=== PATIENT | male | born 1990 | race African-American/Black ===

== ENCOUNTER 2019-11-09 19:29 | Emergency (ER) | payer SELFPAY ==
[~2019-11-09] VITALS: Ht 188 cm; Wt 86.4 kg
--- NOTE | 2019-11-09 19:52 | PHYS DOC ---
General Adult EDM: Chief Complaint: LOWER EXTREMITY SWELLING HPI: HPI: The history was obtained from the patient. Patient is a 29-year-old male with no reported PMH who presents with a chief complaint of leg swelling. Patient states he has had bilateral lower extremity swelling that began this morning. He states yesterday his legs are normal in size. Recent travel or strenuous activity. Denies any history of blood clot. Denies any history of heart failure. States he has no chest pain or shortness of breath. Denies bendopnea or orthopnea. He denies any cough or fever. Denies any history of liver or kidney issues. Denies history of drug use. States he was recently incarcerated and has not had health care for quite a while. Does not take medication daily. Denies history of blood clot in legs or lungs. States it is somewhat painful to stand or ambulate. Has not tried medicine to help. No other complaints. Review of Systems: Review of Systems: Constitutional: Denies fever or chills. [] Eyes: Denies change in visual acuity. [] HENT: Denies nasal congestion or sore throat. [] Respiratory: Denies cough or shortness of breath. [] Cardiovascular: Positive for edema GI: Denies abdominal pain, nausea, vomiting, bloody stools or diarrhea. [] : Denies dysuria. [] Musculoskeletal: Denies back pain or joint pain. [] Integument: Denies rash. [] Neurologic: Denies headache, focal weakness or sensory changes. [] Endocrine: Denies polyuria or polydipsia. [] Lymphatic: Denies swollen glands. [] Psychiatric: Denies depression or anxiety. [] Heart Score: Risk Factors: Risk Factors: DM, Current or recent (<one month) smoker, HTN, HLP, family history of CAD, obesity. Risk Scores: Score 0 - 3: 2.5% MACE over next 6 weeks - Discharge Home Score 4 - 6: 20.3% MACE over next 6 weeks - Admit for Clinical Observation Score 7 - 10: 72.7% MACE over next 6 weeks - Early Invasive Strategies Physical Exam: PE: Constitutional: Well developed, well nourished, no acute distress, non-toxic appearance. [] HENT: Normocephalic, atraumatic, bilateral external ears normal, oropharynx moist, no oral exudates, nose normal. [] Eyes: PERRLA, EOMI, conjunctiva normal, no discharge. [] Neck: Normal range of motion, no tenderness, supple, no stridor. [] Cardiovascular:Heart rate regular rhythm, no murmur. +2-4 DP pulses bilat erally. Lungs & Thorax: Bilateral breath sounds clear to auscultation [] Abdomen: Bowel sounds normal, soft, no tenderness, no masses, no pulsatile masses. [] Skin: Slight increase in warmth to the feet bilaterally. No anthony erythema or induration noted. No crepitus palpated. Back: No tenderness, no CVA tenderness. [] Extremities: No tenderness, no cyanosis, no clubbing, ROM intact, no edema. [] Neurologic: Alert and oriented X 3, normal motor function, normal sensory function, no focal deficits noted. [] Psychologic: Affect normal, judgement normal, mood normal. [] Current Patient Data: Labs: Laboratory Tests Test 11/09/19 20:06 11/09/19 21:34 White Blood Count 5.6 x10^3/uL Red Blood Count 4.77 x10^6/uL Hemoglobin 11.9 g/dL Hematocrit 37.0 % Mean Corpuscular Volume 77 fL Mean Corpuscular Hemoglobin 25 pg Mean Corpuscular Hemoglobin Concent 32 g/dL Red Cell Distribution Width 16.9 % Platelet Count 147 x10^3/uL Neutrophils (%) (Auto) 47 % Lymphocytes (%) (Auto) 41 % Monocytes (%) (Auto) 9 % Eosinophils (%) (Auto) 1 % Basophils (%) (Auto) 2 % Neutrophils # (Auto) 2.6 x10^3/uL Lymphocytes # (Auto) 2.3 x10^3/uL Monocytes # (Auto) 0.5 x10^3/uL Eosinophils # (Auto) 0.1 x10^3/uL Basophils # (Auto) 0.1 x10^3/uL Sodium Level 145 mmol/L Potassium Level 4.3 mmol/L Chloride Level 109 mmol/L Carbon Dioxide Level 32 mmol/L Anion Gap 4 Blood Urea Nitrogen 15 mg/dL Creatinine 1.0 mg/dL Estimated GFR (Cockcroft-Gault) 87.2 BUN/Creatinine Ratio 15 Glucose Level 121 mg/dL Calcium Level 8.8 mg/dL Total Bilirubin 0.2 mg/dL Aspartate Amino Transf (AST/SGOT) 17 U/L Alanine Aminotransferase (ALT/SGPT) 28 U/L Alkaline Phosphatase 71 U/L TZ-Cyc-B-Type Natriuretic Peptide 90 pg/mL Total Protein 6.1 g/dL Albumin 3.4 g/dL Albumin/Globulin Ratio 1.3 Urine Collection Type Unknown Urine Color Yellow Urine Clarity Clear Urine pH 7.0 Urine Specific [place] >=1.030 Urine Protein Negative mg/dL Urine Glucose (UA) Negative mg/dL Urine Ketones (Stick) Trace mg/dL Urine Blood Negative Urine Nitrite Negative Urine Bilirubin Small Urine Urobilinogen Dipstick 1.0 mg/dL Urine Leukocyte Esterase Negative Urine RBC 0 /HPF Urine WBC 1-4 /HPF Urine Squamous Epithelial Cells Few /LPF Urine Bacteria 0 /HPF Urine Mucus Mod /LPF EKG: EKG: EKG consistent with normal sinus rhythm. Ventricular rate of 81 bpm. [place] normal. Intervals normal. Low limb voltage appreciated. No acute ischemic changes noted. No previous for comparison. [] Radiology/Procedures: Radiology/Procedures: [][address] [address] IMAGING REPORT Signed PATIENT: SHERLYN MASTERSON ACCOUNT: [id number] : 1990 LOCATION: ER AGE: 29 SEX: M EXAM STATUS: PRE ER ORD. PHYSICIAN: SHARDA LOVING DO REASON: b/l LE swelling PROCEDURE: VENOUS LOWER EXT BILATERAL Exam: Bilateral lower extremity venous duplex study INDICATION: Leg swelling TECHNIQUE: Using a combination of real-time ultrasound imaging and color-flow and pulse Doppler imaging techniques along with graded compression and augmentation, duplex evaluation of the deep venous systems of bilateral lower extremity was performed. Multiple images were obtained. Findings: There is no sonographic evidence for deep venous thrombosis involving the visualized deep venous structures of the bilateral lower extremity. IMPRESSION: No acute DVT in the bilateral lower extremities. Electronically signed by: Jocelyn Mensah MD (11/09/2019 9:17 PM) [id number] DICTATED and SIGNED BY: JOCELYN MENSAH MD DATE: 11/09/192116 [address] [place] [address] IMAGING REPORT Signed PATIENT: SHERLYN RIOSACCOUNT: [id number] : 1990 LOCATION: ER AGE: 29 SEX: M EXAM STATUS: REG ER ORD. PHYSICIAN: SHARDA LOVING DO REASON: leg swelling PROCEDURE: CHEST AP ONLY Exam: Chest one view INDICATION: Leg swelling TECHNIQUE: Frontal view of the chest Comparisons: None FINDINGS: The cardiomediastinal silhouette and pulmonary vessels are within normal limits. The lung and pleural spaces are clear. IMPRESSION: No acute cardiopulmonary process. Electronically signed by: Jocelyn Mensah MD (11/09/2019 9:34 PM) [id number] DICTATED and SIGNED BY: JOCELYN MENSAH MD DATE: 11/09/192133 Course & Med Decision Making: Course & Med Decision Making Pertinent Labs and Imaging studies reviewed. (See chart for details) Patient is a very pleasant 29-year-old male who presents with chief complaint of bilateral lower extremity swelling over the past 12 hours. Initial vital signs unremarkable. Exam noted above. Lower extremity DVT study was negative for DVTs bilaterally. Chest x-ray nonacute. Labs been grossly unremarkable. Normal kidney function. Liver enzymes within normal limits. BNP normal. Bedside echo performed by myself does show potential trace pericardial effusion. Urinalysis showed no signs of proteinuria. At this time the exact cause of his lower extremity swelling is unclear. He continues to deny any complaints including but not limited to chest pain, shortness of breath, back pain, syncope, or leg pain. I did offer to obtain advanced CT imaging of the chest abdomen pelvis to definitively rule out a more proximal venous blood clot although I do a very low suspicion for this given he has no risk factors to develop this. Patient is declining at this time. Overall I do feel he is appropriate for discharge home. Medications would not be prescribed at home specifically diuretics as the exact cause of the swelling is unclear and there are side effects related to diuretic usage including but not limited to electrolyte disturbances. He was instructed to follow-up with his primary care physician in the next 1 to 2 days. Strict return precautions were discussed and understood. Patient is agreeable to this plan. Remained stable prior to discharge. Dragon Disclaimer: Alessandro Disclaimer: This electronic medical record was generated, in whole or in part, using a voice recognition dictation system. Departure Departure Impression: Primary Impression: Right leg swelling Additional Impression: Left leg swelling Disposition: 01 HOME, SELF-CARE Condition: STABLE Patient Instructions: Peripheral Edema Additional Instructions: [facility] [address] [place] [address] [facility] [address] [place] [address] [facility] [address] [facility] [place] [address] [facility] [address] [place] [address] [facility] [address] [place] [address] [facility] [address] [place] [address] [facility] [address] [place] [address] [facility] [address] [place] [address] [facility] [address] [place] [address] [facility] [address] [place] [address] Justicifation of Admission Dx: Justifications for Admission: Justification of Admission Dx: N/A SHARDA LOVING DO Nov 09, 2019 19:52
[2019-11-09 20:17] LABS: BASO # 0.1 x10^3/uL (0.0-0.2); BASO % 2 % (0-3); EOS # 0.1 x10^3/uL (0.0-0.7); EOS % 1 % (0-3); HEMOGLOBIN 11.9 g/dL (13.0-17.5); LYMPH # 2.3 x10^3/uL (1.0-4.8); LYMPH % 41 % (24-48); MEAN CORPUSCULAR HEMOGLOBIN 25 pg (25-35); MEAN CORPUSCULAR HGB CONC 32 g/dL (31-37); MEAN CORPUSCULAR VOLUME 77 fL (79-100); MONO # 0.5 x10^3/uL (0.0-1.1); MONO % 9 % (0-9); NEUT # 2.6 x10^3/uL (1.8-7.7); NEUT % 47 % (31-73); PLATELET COUNT 147 x10^3/uL (140-400); RED BLOOD COUNT 4.77 x10^6/uL (4.30-5.70); RED CELL DISTRIBUTION WIDTH 16.9 % (11.5-14.5); WHITE BLOOD COUNT 5.6 x10^3/uL (4.0-11.0)
[2019-11-09 20:27] LABS: CALCIUM 8.8 mg/dL (8.5-10.1); GFR 87.2; POTASSIUM 4.3 mmol/L (3.5-5.1)
[2019-11-09 20:33] LABS: ALBUMIN 3.4 g/dL (3.4-5.0); ALBUMIN/GLOBULIN RATIO 1.3 (1.0-1.7); TOTAL BILIRUBIN 0.2 mg/dL (0.2-1.0); TOTAL PROTEIN 6.1 g/dL (6.4-8.2)
--- NOTE | 2019-11-09 21:20 | RAD ---
Exam: Bilateral lower extremity venous duplex study INDICATION: Leg swelling TECHNIQUE: Using a combination of real-time ultrasound imaging and color-flow and pulse Doppler imaging techniques along with graded compression and augmentation, duplex evaluation of the deep venous systems of bilateral lower extremity was performed. Multiple images were obtained. Findings: There is no sonographic evidence for deep venous thrombosis involving the visualized deep venous structures of the bilateral lower extremity. IMPRESSION: No acute DVT in the bilateral lower extremities. Electronically signed by: Jocelyn Brewster MD (11/09/2019 9:17 PM) [id number]
--- NOTE | 2019-11-09 21:37 | RAD ---
Exam: Chest one view INDICATION: Leg swelling TECHNIQUE: Frontal view of the chest Comparisons: None FINDINGS: The cardiomediastinal silhouette and pulmonary vessels are within normal limits. The lung and pleural spaces are clear. IMPRESSION: No acute cardiopulmonary process. Electronically signed by: Jocelyn Brewster MD (11/09/2019 9:34 PM) [id number]
[2019-11-09 21:43] LABS: BILIRUBIN,URINE SMALL (NEG); CLARITY,URINE CLEAR; COLOR,URINE YELLOW; NITRITE,URINE NEGATIVE (NEG); PROTEIN,URINE NEGATIVE (NEG-TRACE)
[2019-11-09 21:49] LABS: BACTERIA,URINE 0 /HPF (0-FEW); RBC,URINE 0 /HPF (0-2); SQUAMOUS EPITHELIAL CELL,UR FEW /LPF
[2019-11-09 21:52] VITALS: BP 156/74
--- NOTE | 2019-11-10 17:01 | EKG ---
[facility] [address] [place] [address] Test Date: 2019-11-09 Test Time: 20:29:54 Pat Name: SHERLYN MASTERSON Department: Room: Gender: M [address]: : 1990 Requested By: SHARDA LOVING Order Number: [id number] Reading MD: Measurements Intervals [place] Rate: 81 P: 51 WV: 166 QRS: 48 QRSD: 82 T: 34 QT: 348 QTc: 409 Interpretive Statements SINUS RHYTHM LOW LIMB LEAD VOLTAGE NO SPECIFIC ECG ABNORMALITIES RI6.02 No previous ECG available for comparison
== END 2019-11-09 22:20 | disposition home or self-care (01) ==
LOC: ER 19:29
DX: R60.0 Localized edema (principal); M79.89 Other specified soft tissue disorders
CPT/HCPCS: 36415; 71045; 80053; 81001; 83880; 85025; 93005; 93970; 99285